=== PATIENT | female | born 1960 ===

== ENCOUNTER 2017-11-20 07:28 | Outpatient (CLI) | payer OTHER | END 2017-11-20 11:20 | disposition home or self-care (01) | LOC: MAMO-SONO 07:28 | DX: Z12.31 Encounter for screening mammogram for malignant neoplasm of breast (principal); N63.10 Unspecified lump in the right breast, unspecified quadrant; N63.20 Unspecified lump in the left breast, unspecified quadrant ==

== ENCOUNTER 2019-08-01 07:44 | Outpatient (CLI) | payer OTHER | END 2019-08-01 07:56 | disposition home or self-care (01) | LOC: MAMO-SONO 07:44 | DX: Z12.31 Encounter for screening mammogram for malignant neoplasm of breast (principal); Z87.898 Personal history of other specified conditions; N60.11 Diffuse cystic mastopathy of right breast; N60.12 Diffuse cystic mastopathy of left breast ==

== ENCOUNTER 2019-08-03 12:49 | Emergency (ER) | payer OTHER ==
[~2019-08-03] VITALS: Ht 157.5 cm; Wt 68.0 kg
[2019-08-03] MEDS ORDERED: CANDESARTAN CILE8 MG (13:03)
== END 2019-08-03 16:14 | disposition home or self-care (01) ==
LOC: ER 12:49
DX: K29.70 Gastritis, unspecified, without bleeding (principal)

== ENCOUNTER → 2025-01-23 | Day surgery (SDC) | payer OTHER ==
[2025-01-21 11:52] VITALS: BP 134/85
[~2025-01-23] VITALS: Ht 157.5 cm; Wt 68.0 kg
[~2025-01-23] MED LIST: ATORVASTATIN CA10 MG PO; CANDESARTAN CILE8 MG; CEFAZOLIN SODIUM 1,000 MG VIAL ONE; CHLORHEXIDINE GLUCONATE 120 ML BOTTLE TOP ONE; HYDRODIURIL12.5 MG PO; LEVO-T25 MCG PO; MORPHINE SULFATE 4 MG/ML VIAL IV ONE; VITAMIN D310 MCG/1 M
== END | disposition home or self-care (01) ==
LOC: ADM 01-21 15:00 → CIR.AMB 06:00
PROVIDERS: ATTEND Surgery
DX: D05.12 Intraductal carcinoma in situ of left breast (principal); R59.0 Localized enlarged lymph nodes; D48.62 Neoplasm of uncertain behavior of left breast; I10 Essential (primary) hypertension; E78.5 Hyperlipidemia, unspecified; E03.8 Other specified hypothyroidism; Z91.040 Latex allergy status

== ENCOUNTER → 2025-02-13 12:09 | Outpatient (CLI) | payer OTHER ==
[~2025-02-13 12:09] MED LIST changes: -CEFAZOLIN SODIUM 1,000 MG VIAL ONE; -CHLORHEXIDINE GLUCONATE 120 ML BOTTLE TOP ONE; -MORPHINE SULFATE 4 MG/ML VIAL IV ONE; +TRAM1TAB98 PO
== END | disposition home or self-care (01) ==
LOC: SONOGRAMA 12:09
PROVIDERS: ATTEND Surgery
DX: N60.11 Diffuse cystic mastopathy of right breast (principal); N60.12 Diffuse cystic mastopathy of left breast

== ENCOUNTER 2025-03-20 07:35 | Day surgery (SDC) | payer OTHER ==
[2025-03-17 13:56] VITALS: BP 132/83
[~2025-03-20] VITALS: Ht 157.5 cm; Wt 68.0 kg
[~2025-03-20 07:35] MED LIST changes: -TRAM1TAB98 PO
[2025-03-20] MEDS ORDERED: TRAM1TAB98 PO (10:30)
[2025-03-20] MEDS ORDERED: CEFAZOLIN SODIUM 1,000 MG VIAL IV ONE (10:45)
[2025-03-20] MEDS ORDERED: HEPARIN SODIUM,PORCINE 5,000 UNIT/ML VIAL IJ ONE (10:45)
== END 2025-03-20 13:00 | disposition home or self-care (01) ==
LOC: CIR.AMB 07:35
PROVIDERS: ATTEND Surgery
DX: C50.012 Malignant neoplasm of nipple and areola, left female breast (principal); Z91.040 Latex allergy status
CPT/HCPCS: 36561; C1751